=== PATIENT | female | born 1955 | race Hispanic/Latino ===

== ENCOUNTER 2018-03-12 03:04 | Observation (INO) | payer BC, MEDICAID ==
[2018-03-12 03:04] VITALS: BMI 20.2
--- NOTE | 2018-03-12 03:27 | ED PDOC ---
Arrival/HPI - General Chief Complaint: GI Problem Time Seen by Provider: 03/12/18 03:07 Historian: Patient - History of Present Illness Narrative History of Present Illness (Text): 03/12/18 03:[address] is a 62 year old female, whose past medical history includes diabetes, hypertension, and hemorrhoids, who presents to the Emergency department complaining of diarrhea. Daughter states patient began experiencing diarrhea 4 days prior and was seen at an Urgent Care clinic 3 days prior. Patient was treated with IV fluids, Zofran, and sent home. Daughter states patient's diarrhea returned at 20:30 yesterday evening with associated abdominal pain and nausea. Patient also reports rectal prolapse with associated discomfort after using the bathroom this evening. Daughter states patient took Dramamine and Imodium at home with minimal relief. Patient denies any fever, chills, chest pain, shortness of breath, vomiting, urinary symptoms, back pain, neck pain, headache, dizziness, or any other complaints. Symptom Onset: Gradual Symptom Course: Unchanged Activities at Onset: Light Context: Home Past Medical History - Provider Review Nursing Documentation Reviewed: Yes - Reproductive Menopause: Yes - Cardiac Hx Hypertension: Yes Hx Pacemaker: No - Neurological Hx Paralysis: No - Endocrine/Metabolic Hx Diabetes Mellitus Type 2: Yes - Hematological/Oncological Hx Blood Transfusions: No Hx Blood Transfusion Reaction: No - Musculoskeletal/Rheumatological Hx Musculoskeletal Disorders: No - Psychiatric Hx Emotional Abuse: No Hx Physical Abuse: No Hx Substance Use: No - Anesthesia Hx Anesthesia Reactions: No Hx Malignant Hyperthermia: No - Suicidal Assessment Feels Threatened In Home Enviroment: No Family/Social History - Physician Review Nursing Documentation Reviewed: Yes Family/Social History: Unknown Family HX Smoking Status: Never Smoked Hx Alcohol Use: No Hx Substance Use: No Allergies/Home Meds Allergies/Adverse Reactions: Allergies No Known Allergies Allergy (Verified 04/25/16 10:42) Home Medications: Home Meds Medication Instructions Recorded Confirmed Atorvastatin [Lipitor] 10 mg PO DIN 04/25/16 04/26/16 Lisinopril [Zestril] 20 mg PO DAILY 04/25/16 04/26/16 Omeprazole [Prilosec] 40 mg PO DAILY 04/26/16 04/26/16 Review of Systems - Physician Review All systems were reviewed & negative as marked: Yes - Review of Systems Constitutional: Normal. absent: Fevers Eyes: Normal ENT: Normal Respiratory: Normal. absent: SOB, Cough Cardiovascular: Normal. absent: Chest Pain Gastrointestinal: Abdominal Pain, Diarrhea, Nausea, Other (+rectal prolapse) Genitourinary Female: Normal. absent: Dysuria, Frequency, Hematuria, Urine Output Changes Musculoskeletal: Normal. absent: Back Pain, Neck Pain Skin: Normal. absent: Rash Neurological: Normal. absent: Headache, Dizziness Endocrine: Normal Hemo/Lymphatic: Normal Psychiatric: Normal Physical Exam Vital Signs Reviewed: Yes Vital Signs Temp Pulse Resp BP Pulse Ox 03/12/18 06:16 97.8 F 78 18 120/72 100 03/12/18 03:11 97.4 F L 74 18 124/67 100 Temperature: Afebrile Blood Pressure: Normal Pulse: Regular Respiratory Rate: Normal Appearance: Positive for: Well-Appearing, Non-Toxic, Comfortable Pain Distress: None Mental Status: Positive for: Alert and Oriented X 3 - Systems Exam Head: Present: Atraumatic, Normocephalic Pupils: Present: PERRL Extroacular Muscles: Present: EOMI Conjunctiva: Present: Normal Mouth: Present: Moist Mucous Membranes Neck: Present: Normal Range of Motion Respiratory/Chest: Present: Clear to Auscultation, Good Air Exchange. No: Respiratory Distress, Accessory Muscle Use Cardiovascular: Present: Regular Rate and Rhythm, Normal S1, S2. No: Murmurs Abdomen: No: Tenderness, Distention, Peritoneal Signs Rectal: Present: Other (Rectal prolapse, RN Iqsa present as vp business development) Back: Present: Normal Inspection Upper Extremity: Present: Normal Inspection. No: Cyanosis, Edema Lower Extremity: Present: Normal Inspection. No: Edema Neurological: Present: GCS=15, CN II-XII Intact, Speech Normal Skin: Present: Warm, Dry, Normal Color. No: Rashes Psychiatric: Present: Alert, Oriented x 3, Normal Insight, Normal Concentration Medical Decision Making ED Course and Treatment: 03/12/18 03:26 Impression: 62 year old female complaining of diarrhea, nausea, abdominal pain, and rectal prolapse. Plan: -- EKG -- Labs, amylase, lipase -- Urinalysis -- IV fluids -- Morphine -- Reassess and disposition Progress Notes: 03/12/08 03:33 residential leasing manager paged. 03/12/18 03:41 Reviewed EKG, NSR at [address]-segment elevations or depressions, no T-wave inversions, normal intervals. Case discussed with surgical assist senior java web application developer, who agrees to evaluate pt. 03/12/18 04:20 Pt seen and evaluated by surgical assist, Dr. Mckinley, who reduced rectal prolapse without difficulty. 03/12/18 04:50 On re-evaluation, pt reports recurrence of rectal prolapse. Dr. Bella's service paged. 03/12/18 05:03 Case discussed with CALI Rogel, covering for Dr. Bella, who is aware and agrees with plan. [facility] will go to [facility] observation for rectal prolapse under Dr. Bella's service. Spoke with surgical assist, who will return to ER to reduce rectal prolapse. - Lab Interpretations Lab Results: 03/12/18 03:45 03/12/18 03:45 Lab Results 03/12/18 03:45: Sodium 132, Potassium 3.4 L, Chloride 98, Carbon Dioxide 23, Anion Gap 15, BUN 11, Creatinine 0.6 L, Est GFR ( Amer) > 60, Est GFR ( Non-Af Amer) > 60, Random Glucose 109, Calcium 8.7, Total Bilirubin 0.3, AST 46 H, ALT 55, Alkaline Phosphatase 60, Lactate Dehydrogenase 487, Total Creatine Kinase 87, Troponin I < 0.01, Total Protein 6.8, Albumin 4.0, Globulin 2.8, Albumin/Globulin Ratio 1.4, Amylase 57, Lipase 32 03/12/18 03:45: PT 11.4, INR 1.00, APTT 28.3 03/12/18 03:45: WBC 3.3 L, RBC 4.00, Hgb 11.9 L, Hct 34.4 L, MCV 86.0, MCH 29.8 , MCHC 34.6, RDW 12.8, Plt Count 113 L, MPV 9.7, Gran % 57.4, Lymph % (Auto) 25.2, Dane % (Auto) 16.8 H, Eos % (Auto) 0.3 L, Baso % (Auto) 0.3, Gran # 1.91, Lymph # (Auto) 0.8 L, Dane # (Auto) 0.6, Eos # (Auto) 0.0, Baso # (Auto) 0.01 I have reviewed the lab results: Yes - EKG Interpretation Interpreted by ED Physician: Yes Type: 12 lead EKG - Medication Orders Current Medication Orders: Discontinued Medications Acetaminophen (Tylenol 325mg Tab) 650 mg PO Q4H PRN PRN Reason: Fever >100.5 F Atorvastatin Calcium (Lipitor) 10 mg PO DIN [facility] Last Admin: 03/12/18 17:08 Dose: 10 mg Sodium Chloride (Sodium Chloride 0.9%) 1,000 mls @ 80 mls/hr IV .[id number] [facility] Last Admin: 03/13/18 06:16 Dose: 80 mls/hr eMAR Start Stop Document 03/13/18 06:16 MAD (Rec: 03/13/18 06:16 MAD [id number]) Intravenous Solution Start Date 03/13/18 Start Time 06:16 Sodium Chloride (Sodium Chloride 0.9%) 1,000 mls @ 100 mls/hr IV .Q10H STA Stop: 03/12/18 15:06 Last Admin: 03/12/18 05:46 Dose: 100 mls/hr eMAR Start Stop Document 03/12/18 05:46 IT (Rec: 03/12/18 05:46 IT [id number]) Intravenous Solution Start Date 03/12/18 Start Time 05:46 Insulin Human Regular (Humulin R Low) 0 units SC ACHS [facility] PRN Reason: Protocol Last Admin: 03/13/18 11:32 Dose: Not Given Non-Admin Reason: Blood Sugar Parameter MAR Blood Glucose Document 03/13/18 11:32 AJ (Rec: 03/13/18 11:33 AJ [id number]) Blood Glucose Finger Stick Blood Glucose (70-120) 96 Lisinopril (Zestril) 20 mg PO DAILY [facility] Last Admin: 03/13/18 10:59 Dose: 20 mg MAR Pulse and Blood Pressure Document 03/13/18 10:59 AJ (Rec: 03/13/18 10:59 AJ [id number]) Pulse Pulse Rate (60-90) 71 Blood Pressure Blood Pressure (100/60-150/90) 110/62 Morphine Sulfate (Morphine) 2 mg IVP STAT STA Stop: 03/12/18 03:36 Last Admin: 03/12/18 04:00 Dose: Pneumococcal Polyvalent Vaccine (Pneumovax 23 Vaccine) 0.5 ml IM .ONCE ONE Stop: 03/12/18 15:51 - Scribe Statement The provider has reviewed the documentation as recorded by the Scribe Marleny José All medical record entries made by the Scribe were at my direction and personally dictated by me. I have reviewed the chart and agree that the record accurately reflects my personal performance of the history, physical exam, medical decision making, and the department course for this patient. I have also personally directed, reviewed, and agree with the discharge instructions and disposition. Disposition/Present on Arrival - Present on Arrival Any Indicators Present on Arrival: No History of DVT/PE: No History of Uncontrolled Diabetes: No Urinary Catheter: No History of Decub. Ulcer: No History Surgical Site Infection Following: None - Disposition Have Diagnosis and Disposition been Completed?: Yes Diagnosis: Rectal prolapse Disposition: HOSPITALIZED Disposition Time: 05:05 Condition: GOOD
[2018-03-12] MEDS ORDERED: Morphine 4 mg/ml ISec IVP STA (03:35)
[2018-03-12] MEDS: Sodium Chloride 0.9% 1,000 ML IV SCH ×2 (04:00→17:08)
[2018-03-12 04:06] LABS: ALB/GLOB RATIO 1.4 (1.1-1.8); ALT/SGPT 55 U/L (7-56); AMYLASE 57 U/L (35-125); AST/SGOT 46 U/L (14-36); BLOOD UREA NITROGEN 11 mg/dL (7-21); CALCIUM 8.7 mg/dL (8.4-10.5); GFR AFRICAN-AMERICAN > 60; GFR NON-AFRICAN AMERICAN > 60; LIPASE 32 U/L (23-300)
[2018-03-12 04:07] LABS: BASO # 0.01 K/mm3 (0.0-2.0); BASO % 0.3 % (0.0-3.0); EOS % 0.3 % (1.5-5.0); GRAN # 1.91 (1.4-6.5); GRAN % 57.4 % (50.0-68.0); HEMOGLOBIN 11.9 g/dL (12.0-16.0); LYMPH # 0.8 (1.2-3.4); LYMPH % 25.2 % (22.0-35.0); MEAN CORPUSCULAR HEMOGLOBIN 29.8 pg (25.0-35.0); MEAN CORPUSCULAR HGB CONC 34.6 g/dl (31.0-37.0); MEAN PLATELET VOLUME 9.7 fl (7.0-11.0); MONO # 0.6 (0.1-0.6); MONO % 16.8 % (1.0-6.0); RED CELL DISTRIBUTION WIDTH 12.8 % (11.5-14.5); WHITE BLOOD COUNT 3.3 10^3/ul (4.5-11.0)
[2018-03-12 04:16] LABS: TROPONIN I < 0.01 ng/mL
[2018-03-12 04:18] LABS: PARTIAL THROMBOPLASTIN TIME 28.3 Seconds (25.1-36.5); PROTHROMBIN TIME 11.4 SECONDS (9.4-12.5)
[2018-03-12] MEDS ORDERED: Sodium Chloride 0.9% 1,000 ML IV STA (05:07)
--- NOTE | 2018-03-12 06:14 | CP.PCM.CON ---
History of Present Illness - History of Present Illness History of Present Illness: General Surgery: Dr Hylton Pt is a 62F with PMH of HTN, DM, and hemorrhoids. Pt presents with abominal pain and multiple episodes of diarrhea. During her persistent diarrhea pt's rectum prolapsed. Per her daughter who is bedside this has happened before. Rectum has been prolapsed for about 4 hours. Pt reports it is painful, but continuing to have BMs during this time. Denies any fevers, chills, nausea or vomiting. Rectum reduced at bedside, but within 1 hour pt had another bowel movement and it spontaneously returned. Pt was admitted for observation. PMH: htn. dm, hemorrhoids PSH: denies Review of Systems - Review of Systems All systems: reviewed and no additional remarkable complaints except (as per hpi ) Past Patient History - Past Social History Smoking Status: Never Smoked - CARDIAC Hx Hypertension: Yes Hx Pacemaker: No - NEUROLOGICAL Hx Paralysis: No - ENDOCRINE/METABOLIC Hx Diabetes Mellitus Type 2: Yes - HEMATOLOGICAL/ONCOLOGICAL Hx Blood Transfusions: No Hx Blood Transfusion Reaction: No - MUSCULOSKELETAL/RHEUMATOLOGICAL Hx Musculoskeletal Disorders: No - PSYCHIATRIC Hx Emotional Abuse: No Hx Physical Abuse: No Hx Substance Use: No - SURGICAL HISTORY Hx Surgeries: Yes - ANESTHESIA Hx Anesthesia Reactions: No Hx Malignant Hyperthermia: No Meds Allergies/Adverse Reactions: Allergies Allergy/AdvReac Type Severity Reaction Status Date / Time No Known Allergies Allergy Verified 04/25/16 10:42 - Medications Medications: Current Medications Acetaminophen (Tylenol 325mg Tab) 650 mg PO Q4H PRN PRN Reason: Fever >100.5 F Sodium Chloride (Sodium Chloride 0.9%) 1,000 mls @ 80 mls/hr IV .[id number] [facility] Last Admin: 03/12/18 04:00 Dose: 80 mls/hr Sodium Chloride (Sodium Chloride 0.9%) 1,000 mls @ 100 mls/hr IV .Q10H STA Stop: 03/12/18 15:06 Last Admin: 03/12/18 05:46 Dose: 100 mls/hr Physical Exam - Constitutional Appears: Non-toxic, No Acute Distress - ENT Exam ENT Exam: Mucous Membranes Moist - Respiratory Exam Respiratory Exam: absent: Accessory Muscle Use, Respiratory Distress - Cardiovascular Exam Cardiovascular Exam: REGULAR RHYTHM. absent: Tachycardia - GI/Abdominal Exam GI & Abdominal Exam: Distended, Soft. absent: Firm, Guarding, Hernia, Tenderness - Rectal Exam Additional comments: prolapsed rectum, red/pink mucosa, no evidence of ischemia - Extremities Exam Extremities exam: Negative for: pedal edema - Neurological Exam Neurological exam: Alert, Oriented x3 - Psychiatric Exam Psychiatric exam: Normal Affect, Normal Mood - Skin Skin Exam: Normal Color, Warm Results - Vital Signs Recent Vital Signs: Last Vital Signs Temp 97.4 F L 03/12/18 03:11 Pulse 74 03/12/18 03:11 Resp 18 03/12/18 03:11 BP 124/67 03/12/18 03:11 Pulse Ox 100 03/12/18 03:11 - Labs Result Diagrams: 03/12/18 03:45 03/12/18 03:45 Assessment & Plan - Assessment and Plan (Free Text) Assessment: 62F with rectal prolapse Plan: will reduce again pt may need definitive procedure, must discuss with attending first further recs to follow will d/w Dr Concetta Mckinley, PGY3
[2018-03-12] MEDS: Insulin Reg-LOW-Coverage SC SCH ×3 (12:14→22:58)
[2018-03-12] MEDS ORDERED: Pneumococcal 23-Valent Vaccine IM ONE (15:50)
--- NOTE | 2018-03-12 16:23 | CP.PCM.CON ---
History of Present Illness - History of Present Illness History of Present Illness: Seen and examined at the bedside earlier today, chart review. Daughter at bedside. Request for GI consult is for rectal prolapse. HPI: This is a 62-year-old female with a past medical history of hemorrhoids, hypertension, diabetes came to the emergency room with complaints of diarrhea. Daughter and patient state that stomach virus going on in the family and had diarrhea since Monday. Patient took Imodium and Pepto-Bismol. The patient 3 days prior reported going to urgent care clinic. The patient was given IV fluids and Zofran and discharged home. Daughter endorse that the diarrhea returned yesterday evening and started having lower abdominal pain and nausea. Denies any hematemesis. Patient reported having multiple bowel movements and experienced rectal prolapse. Only noted blood when this occurred. Denies any fever or chills. Last bowel movement was in the emergency room. The patient was seen this morning by surgery who reduced her rectal prolapse. The patient does complain of lower abdominal pain and distention. Reported having voided small amount of urine earlier this morning. Denies any dysuria or hematuria. Patient's last endoscopy and colonoscopy was April 26, 2016 found to have diverticulosis, internal hemorrhoids and a redundant sigmoid colon. Recommended colonoscopy in 5 years. Endoscopy found to have LA grade B reflux esophagitis, ulcers, duodenitis and gastritis. Her esophageal biopsies were negative for intestinal metaplasia, gastric biopsies negative for H. pylori. And duodenal biopsies negative for celiac disease. Patient denies any weight loss or loss of appetite only now secondary to her current complaints. Past medical history: Diverticulosis, hypertension, diabetes mellitus, hemorrhoids, reflux esophagitis Past surgical history: Tubal ligation, cholecystectomy, tonsillectomy Allergies: No known drug allergies Family history: Mother lung cancer Social history: Denies tobacco use, EtOH or illicit drugs ROS: Systems reviewed positive findings see HPI Past Patient History - Past Social History Smoking Status: Never Smoked - CARDIAC Hx Hypertension: Yes Hx Pacemaker: No - NEUROLOGICAL Hx Paralysis: No - ENDOCRINE/METABOLIC Hx Diabetes Mellitus Type 2: Yes - HEMATOLOGICAL/ONCOLOGICAL Hx Blood Transfusions: No Hx Blood Transfusion Reaction: No - MUSCULOSKELETAL/RHEUMATOLOGICAL Hx Falls: No - PSYCHIATRIC Hx Emotional Abuse: No Hx Physical Abuse: No Hx Substance Use: No - SURGICAL HISTORY Hx Surgeries: Yes - ANESTHESIA Hx Anesthesia Reactions: No Hx Malignant Hyperthermia: No Meds Allergies/Adverse Reactions: Allergies Allergy/AdvReac Type Severity Reaction Status Date / Time No Known Allergies Allergy Verified 04/25/16 10:42 - Medications Medications: Current Medications Acetaminophen (Tylenol 325mg Tab) 650 mg PO Q4H PRN PRN Reason: Fever >100.5 F Atorvastatin Calcium (Lipitor) 10 mg PO DIN [facility] Sodium Chloride (Sodium Chloride 0.9%) 1,000 mls @ 80 mls/hr IV .[id number] [facility] Last Admin: 03/12/18 04:00 Dose: 80 mls/hr Insulin Human Regular (Humulin R Low) 0 units SC ACHS [facility] PRN Reason: Protocol Last Admin: 03/12/18 12:14 Dose: Not Given Lisinopril (Zestril) 20 mg PO DAILY [facility] Physical Exam - Constitutional Appears: No Acute Distress - Head Exam Head Exam: NORMOCEPHALIC - Eye Exam Eye Exam: Normal appearance. absent: Scleral icterus - ENT Exam ENT Exam: Mucous Membranes Moist - Neck Exam Neck exam: Positive for: Normal Inspection. Negative for: Thyromegaly - Respiratory Exam Respiratory Exam: Clear to Auscultation Bilateral, NORMAL BREATHING PATTERN. absent: Respiratory Distress - Cardiovascular Exam Cardiovascular Exam: +S1, +S2 - GI/Abdominal Exam GI & Abdominal Exam: Normal Bowel Sounds, Soft, Tenderness (suprapubic distention and tenderness). absent: Guarding, Rebound - Extremities Exam Extremities exam: Positive for: pedal pulses present. Negative for: calf tenderness, pedal edema - Neurological Exam Neurological exam: Alert, Oriented x3 - Skin Skin Exam: Dry, Warm Results - Vital Signs Recent Vital Signs: Last Vital Signs Temp 98 F 03/12/18 15:05 Pulse 71 03/12/18 15:05 Resp 18 03/12/18 15:05 BP 127/80 03/12/18 15:05 Pulse Ox 98 03/12/18 15:05 - Labs Result Diagrams: 03/12/18 03:45 03/12/18 03:45 Labs: Laboratory Results - last 24 hr 03/12/18 03/12/18 07:10 11:04 POC Glucose (mg/dL) 102 96 Assessment & Plan - Assessment and Plan (Free Text) Assessment: Assessment: Diarrhea, history of stomach virus Bladder Distention Rectal prolapse History of diverticulosis Diabetes mellitus Hypertension Plan: Nothing by mouth, continue IV F Surgical follow-up CT scan of abdomen and pelvis w/ PO and IV contrast Continued GI prophylaxis DVT prophylaxis bladder scan,suprapubic distension/discomfort, and decrease urintation discuss w / nurse at bedside. Thank you for this consult and for allowing us to participate in your patient's care, further recommendations based upon clinical course. Seen and discussed with Dr. Salmon.
--- NOTE | 2018-03-12 20:34 | CARD ---
APPROVED REPORT EKG Measurement Heart [id number] <Conclusion> Normal sinus rhythm Normal ECG
--- NOTE | 2018-03-12 21:29 | HP ---
HISTORY OF PRESENT ILLNESS: A 62-year-old female with history of non-insulin dependent diabetes mellitus, hypertension, hypercholesterolemia, recent history of gastroenteritis, which had been found throughout the family for the last 4 to 5 days. The patient had a syncopal episode after having excessive amount of diarrhea and was taken to Urgent Care, had a normal CT of the head and other x-rays and laboratory data, was discharged back home. The patient because of excessive diarrhea, had a severe external prolapse of the rectum with bleeding. The patient was brought to the Emergency Room, the rectum was reduced, however, with diarrhea, had another episode of rectal prolapse, has been reduced again. PAST SURGICAL HISTORY: The patient does have a history of having bladder incontinence after having 3 vaginal deliveries, 3 children. Her bladder incontinence was treated with a surgical procedure many, many years ago. The patient has also had tubal ligation, cholecystectomy, and tonsillectomy. ALLERGIES: SHE HAS NO ALLERGIES. MEDICATIONS: She is on atorvastatin, omeprazole, metformin, lisinopril and aspirin. PHYSICAL EXAMINATION: GENERAL: The patient is seen with the family. She is a thin female in no apparent distress. VITAL SIGNS: Stable. HEENT: Essentially normal. HEART: Regular sinus rhythm. No significant murmur. ABDOMEN: Soft, bowel sounds are normoactive. EXTREMITIES: Without cyanosis, clubbing or edema. NEUROLOGIC: Grossly intact. RECTAL: At this point, the rectum has been reduced. There is no prolapse. PLAN: At this time, plan is to discuss with Colorectal Surgery for possible transfer for rectal prolapse surgery. Plan is also to discontinue the metformin and use a BRAT diet for control of diarrhea and possible Imodium and GI consultation. Jamel Bella MD
[2018-03-13] MEDS: Sodium Chloride 0.9% 1,000 ML IV SCH (06:16)
[2018-03-13] MEDS ORDERED: Barium Sulfate Susp 2.1% w/v, 2.0% w/w 450 mL Bottle PO ONE (06:28)
[2018-03-13 08:31] VITALS: RESP 20; TEMP 98
[2018-03-13] MEDS ORDERED: Iohexol 350 MG/100 ML VIAL ONE (09:16)
[2018-03-13] MEDS: Insulin Reg-LOW-Coverage SC SCH ×2 (09:38→11:32)
--- NOTE | 2018-03-13 10:13 | CT ---
PROCEDURE: CT Abdomen and Pelvis with contrast HISTORY: rectal prolapse COMPARISON: None. TECHNIQUE: Contrast dose: 100 cc of Omni 350 Radiation dose: Total exam DLP = 202 mGy-cm. This CT exam was performed using one or more of the following dose reduction techniques: Automated exposure control, adjustment of the mA and/or kV according to patient size, and/or use of iterative reconstruction technique. FINDINGS: LOWER THORAX: Unremarkable. LIVER: Unremarkable. No gross lesion or ductal dilatation. GALLBLADDER AND BILE DUCTS: Unremarkable. PANCREAS: Unremarkable. No gross lesion or ductal dilatation. SPLEEN: Unremarkable. ADRENALS: Unremarkable. No mass. KIDNEYS AND URETERS: Unremarkable. No hydronephrosis. No solid mass. VASCULATURE: Unremarkable. No aortic aneurysm. BOWEL: There is severe mural thickening in the rectum. Inflammatory changes are seen in the perirectal fat planes. There is no obvious rectal prolapse. This can be an intermittent finding and is difficult to evaluate on CT. . APPENDIX: Normal appendix. PERITONEUM: Unremarkable. No free fluid. No free air. LYMPH NODES: Unremarkable. No enlarged lymph nodes. BLADDER: Unremarkable. REPRODUCTIVE: Unremarkable. BONES: No acute fracture. OTHER FINDINGS: None. IMPRESSION: There is severe mural thickening in the rectum. Inflammatory changes are seen in the perirectal fat planes. There is no obvious rectal prolapse. This can be an intermittent finding and is difficult to evaluate on CT. .
[2018-03-13 11:20] LABS: URINE BILIRUBIN NEGATIVE (NEGATIVE); URINE BLOOD NEGATIVE (NEGATIVE); URINE GLUCOSE (UA) NEGATIVE (NEGATIVE); URINE LEUKOCYTE ESTERASE NEGATIVE Leu/uL (NEGATIVE); URINE PROTEIN NEGATIVE mg/dL (<30 mg/dL); URINE UROBILINOGEN 0.2 E.U./dL (<1 E.U./dL)
[2018-03-13 11:22] LABS: URINE APPEARANCE CLEAR (CLEAR); URINE COLOR YELLOW (YELLOW)
--- NOTE | 2018-03-13 11:31 | CP.PCM.PN ---
Subjective - Date & Time of Evaluation Date of Evaluation: 03/13/18 Time of Evaluation: 11:25 - Subjective Subjective: Surgery Progress Note: Patient seen and assessed at bedside. No acute events overnight. Multiple loose BM's overnight. Denies fevers, chills, headache, chest pain, SOB, abdominal pain , or N/V/C. Objective - Vital Signs/Intake and Output Vital Signs (last 24 hours): Temp Pulse Resp BP Pulse Ox 98 F 71 20 110/62 97 03/13/18 08:30 03/13/18 10:59 03/13/18 08:30 03/13/18 10:59 03/13/18 08:30 Intake and Output: 03/13/18 03/13/18 06:59 18:59 Intake Total 540 Balance 540 - Medications Medications: Current Medications Acetaminophen (Tylenol 325mg Tab) 650 mg PO Q4H PRN PRN Reason: Fever >100.5 F Atorvastatin Calcium (Lipitor) 10 mg PO DIN [facility] Last Admin: 03/12/18 17:08 Dose: 10 mg Sodium Chloride (Sodium Chloride 0.9%) 1,000 mls @ 80 mls/hr IV .[id number] [facility] Last Admin: 03/13/18 06:16 Dose: 80 mls/hr Insulin Human Regular (Humulin R Low) 0 units SC ACHS [facility] PRN Reason: Protocol Last Admin: 03/13/18 09:38 Dose: Not Given Lisinopril (Zestril) 20 mg PO DAILY [facility] Last Admin: 03/13/18 10:59 Dose: 20 mg - Labs Labs: PT 11.4 SECONDS (9.4-12.5) 03/12/18 03:45 INR 1.00 (0.93-1.08) 03/12/18 03:45 APTT 28.3 Seconds (25.1-36.5) 03/12/18 03:45 - Constitutional Appears: Non-toxic, No Acute Distress - Head Exam Head Exam: ATRAUMATIC, NORMOCEPHALIC - Respiratory Exam Respiratory Exam: NORMAL BREATHING PATTERN. absent: Accessory Muscle Use, Respiratory Distress - GI/Abdominal Exam GI & Abdominal Exam: Soft, Normal Bowel Sounds. absent: Distended, Firm, Guarding, Rigid, Tenderness, Rebound - Rectal Exam Additional comments: Wound dressing clean dry and intact - Neurological Exam Neurological Exam: Alert, Awake, Normal Gait, Oriented x3 - Psychiatric Exam Psychiatric exam: Normal Affect, Normal Mood - Skin Skin Exam: Dry, Warm Assessment and Plan - Assessment and Plan (Free Text) Assessment: 62 year old female with rectal prolapse Plan: -CT A/P showed severe thickening of rectum -Continue to reduce rectal prolapse manually as needed with digital pressure -Continue to change rectal dressing as needed -Continue medical management per primary -Patient pending possible transfer to [facility] -D/W with attending Anabel Don PGY1
--- NOTE | 2018-03-13 13:14 | CP.PCM.PN ---
Subjective - Date & Time of Evaluation Date of Evaluation: 03/13/18 Time of Evaluation: 11:20 - Subjective Subjective: Seen and examined at the bedside earlier today, status post CT scan. Patient denies nausea, vomiting, minimal lower abdominal pain. Last episode of bowel movement was post oral CT scan. No further rectal prolapse. Patient voiding with no difficulty. CT scan report noted. Reporting rectal inflammation and no evidence of rectal prolapse. Objective - Vital Signs/Intake and Output Vital Signs (last 24 hours): Temp Pulse Resp BP Pulse Ox 98 F 71 20 110/62 97 03/13/18 08:30 03/13/18 10:59 03/13/18 08:30 03/13/18 10:59 03/13/18 08:30 Intake and Output: 03/13/18 03/13/18 06:59 18:59 Intake Total 540 Balance 540 - Medications Medications: Current Medications Acetaminophen (Tylenol 325mg Tab) 650 mg PO Q4H PRN PRN Reason: Fever >100.5 F Atorvastatin Calcium (Lipitor) 10 mg PO DIN [facility] Last Admin: 03/12/18 17:08 Dose: 10 mg Sodium Chloride (Sodium Chloride 0.9%) 1,000 mls @ 80 mls/hr IV .[id number] [facility] Last Admin: 03/13/18 06:16 Dose: 80 mls/hr Insulin Human Regular (Humulin R Low) 0 units SC ACHS [facility] PRN Reason: Protocol Last Admin: 03/13/18 11:32 Dose: Not Given Lisinopril (Zestril) 20 mg PO DAILY [facility] Last Admin: 03/13/18 10:59 Dose: 20 mg - Labs Labs: PT 11.4 SECONDS (9.4-12.5) 03/12/18 03:45 INR 1.00 (0.93-1.08) 03/12/18 03:45 APTT 28.3 Seconds (25.1-36.5) 03/12/18 03:45 - Constitutional Appears: No Acute Distress - Head Exam Head Exam: NORMOCEPHALIC - Eye Exam Eye Exam: Normal appearance. absent: Scleral icterus - ENT Exam ENT Exam: Mucous Membranes Moist - Neck Exam Neck Exam: Normal Inspection - Respiratory Exam Respiratory Exam: NORMAL BREATHING PATTERN. absent: Respiratory Distress - Cardiovascular Exam Cardiovascular Exam: +S1, +S2 - GI/Abdominal Exam GI & Abdominal Exam: Soft, Tenderness (lower abdominal no rebound or guarding), Normal Bowel Sounds. absent: Guarding, Rebound - Extremities Exam Extremities Exam: absent: Calf Tenderness, Pedal Edema - Neurological Exam Neurological Exam: Alert, Awake, Oriented x3 - Skin Skin Exam: Dry, Warm Assessment and Plan - Assessment and Plan (Free Text) Assessment: Assessment: Diarrhea, history of stomach virus Bladder Distention Rectal prolapse History of diverticulosis Diabetes mellitus Hypertension Plan: diet as tolerated monitor H/H plan to DC home to FU w/ colorectal SX, discuss w/ pt and daughter at bedside. discuss w/ nurse to send with CD of ct scan A&P w/ report. Seen and discussed with Dr. Salmon.
[2018-03-13 14:01] VITALS: BP 116/77; PULSE 80; O2SAT 98
--- NOTE | 2018-03-13 16:08 | PN ---
DATE: 03/13/2018 SUBJECTIVE: A 62-year-old white female presenting with recurrent rectal prolapse after a short episode of diarrhea, possibly gastroenteritis. The patient has had 3 episodes yesterday of rectal prolapse, which had been replaced by the surgeons. The patient is having a CT of the abdomen, was seen in consultation with Dr. Salmon. She has low-grade fever of 99.1 and blood pressure 128/80. Slightly low white count of 3.3, hemoglobin 11.9. The patient is comfortable this morning. Abdomen is soft. She is without any pain. Chest is clear to auscultation and percussion. Heart examination reveals sinus rhythm. Plan is to send her for CAT scan today and then discharge to follow up with Dr. Patterson at [facility] for rectal prolapse surgery. Jamel Bella MD
--- NOTE | 2018-03-14 09:45 | DS ---
HISTORY OF PRESENT ILLNESS: The patient is a 62-year-old white female admitted to the hospital with recurrent rectal prolapse, history of non-insulin dependent diabetes mellitus, recent history of diarrhea. The patient had multiple prolapse in the hospital, which were reinserted by surgery. The patient eventually also was seen by Dr. Salmon, Dr. Menendez and had a CT of the abdomen. The patient will be discharged home to be followed with Dr. Patterson, a colorectal surgeon for final repair. . FINAL DISCHARGE DIAGNOSES: Recurrent rectal prolapse, non-insulin dependent diabetes mellitus. Jamel Bella MD
== END 2018-03-13 16:42 | disposition home or self-care (01) ==
LOC: ED 03:04 → ERH 05:05 → 5RSO 07:08
PROVIDERS: ADMIT Internal Medicine; ATTEND Internal Medicine
DX: K62.3 Rectal prolapse (principal); E11.9 Type 2 diabetes mellitus without complications; I10 Essential (primary) hypertension; E78.00 Pure hypercholesterolemia, unspecified; K64.9 Unspecified hemorrhoids; K57.90 Diverticulosis of intestine, part unspecified, without perforation or abscess without bleeding; R19.7 Diarrhea, unspecified; N32.89 Other specified disorders of bladder; Z79.84 Long term (current) use of oral hypoglycemic drugs; Z79.82 Long term (current) use of aspirin
CPT/HCPCS: 74177; 80053; 81003; 82150; 82550; 82948; 83615; 83690; 84484; 85025; 85610; 85730; 93005; 99284; G0378; J7040; Q9967